=== PATIENT | male | born 1950 | race Caucasian/White ===

== ENCOUNTER 2017-12-08 09:44 | Day surgery (SDC) | payer SELFPAY ==
[2017-12-08] VITALS (10 sets, daily range): BP systolic 158–189; BP diastolic 62–111; PULSE 90–118; TEMP 98.4–98.8
[~2017-12-08] VITALS: Ht 185.4 cm; Wt 76.0 kg
[2017-12-08] MEDS ORDERED: ASPIRIN 32325 MG/TAB PO (10:07)
[2017-12-08] MEDS ORDERED: COZAAR 25MG25 MG/TAB PO (10:07)
[2017-12-08] MEDS ORDERED: CENTRUM SILVER1 TAB PO (10:08)
[2017-12-08] MEDS ORDERED: OMEGA-3 1000 MG1 CAP PO (10:08)
[2017-12-08] MEDS ORDERED: NORCO 325 MG-7.1 TAB PO (18:15)
[2017-12-08] MEDS ORDERED: ROXICODONE 55 MG/TAB PO (18:16)
[2017-12-09 00:01] VITALS: BP 151/74; PULSE 88; TEMP 98.1
[2017-12-09 03:36] VITALS: BP 158/86; PULSE 88; TEMP 98.1
[2017-12-09 07:31] VITALS: BP 171/77; PULSE 100; TEMP 98.9
[2017-12-09] MEDS ORDERED: NORCO 325 MG-7.1 TAB PO (07:49)
[2017-12-09] MEDS ORDERED: OMEGA-3 1000 MG1 CAP PO (07:49)
[2017-12-09] MEDS ORDERED: COZAAR 25MG25 MG/TAB PO (07:49)
[2017-12-09] MEDS ORDERED: ROXICODONE 55 MG/TAB PO (07:49)
[2017-12-09] MEDS ORDERED: ASPIRIN 32325 MG/TAB PO (07:49)
== END 2017-12-09 11:03 | disposition home or self-care (01) ==
LOC: SDCO 09:44 → MEDICAL 20:50 → SDCO 12-09 11:03
DX: S46.012A Strain of muscle(s) and tendon(s) of the rotator cuff of left shoulder, initial encounter (principal); S43.492A Other sprain of left shoulder joint, initial encounter; S46.192A Other injury of muscle, fascia and tendon of long head of biceps, left arm, initial encounter; G89.18 Other acute postprocedural pain
CPT/HCPCS: OP; C1713; J0690; J1100; J1170; J2270; J2370; J2405; J2704; J2765; J2795; J3010; J7030; J7120

== ENCOUNTER → 2018-02-01 | Outpatient (CLI) | payer SELFPAY ==
[~2018-02-01] MED LIST: ASPIRIN 32325 MG/TAB PO; CENTRUM SILVER1 TAB PO; CEPHALEXIN500 M1 PO; COZAAR 25MG25 MG/TAB PO; HYZAAR 12.5 MG-1 TAB PO; MOTRIN 200200 MG/TAB PO; NORCO 325 MG-7.1 TAB PO; OMEGA-3 1000 MG1 CAP PO; ROXICODONE 55 MG/TAB PO
[2018-02-01 10:53] LABS: HEMATOCRIT 44.5 % (42.0-52.0); HEMOGLOBIN 15.1 g/dl (13.5-18.0); MEAN CELL VOLUME 94 fl (80.0-100.0); MEAN CORPUSCULAR HEMOGLOBIN 32 pg (27.0-31.0); MEAN CORPUSCULAR HGB CONC 34 g/dl (33.0-37.0); MEAN PLATELET VOLUME 8.8 fl (7.4-10.4); PLATELET COUNT 336 K/mm3 (130-400); RED BLOOD COUNT 4.72 M/mm3 (4.20-5.60); REDCELL DISTRIBUTION WIDTH-CV 12.1 % (11.5-14.5)
[2018-02-01 11:04] LABS: ALBUMIN 4.6 gm/dL (3.5-5.0); BILIRUBIN,TOTAL 0.7 mg/dL (0.0-1.0); C-REACTIVE PROTEIN 1.8 mg/dL (0.0-0.9); CALCIUM 10.1 mg/dL (8.4-10.2); CREATININE, serum 1.22 mg/dL (0.66-1.25); POTASSIUM 3.9 mmol/L (3.4-5.0); TOTAL PROTEIN 8.8 gm/dL (6.4-8.2)
[2018-02-01 11:24] LABS: ERYTHROCYTE SEDIMENTATION RATE 40 mm/hr (0-30)
== END ==
LOC: COL.LAB 10:36
PROVIDERS: Nurse Practitioner
DX: T81.89XA Other complications of procedures, not elsewhere classified, initial encounter (principal)

== ENCOUNTER 2018-02-02 12:46 | Day surgery (SDC) | payer SELFPAY ==
[2018-02-02] VITALS (7 sets, daily range): BP systolic 121–148; BP diastolic 59–72; PULSE 72–113; TEMP 99
[~2018-02-02] VITALS: Ht 185.4 cm; Wt 74.5 kg
[~2018-02-02 12:46] MED LIST changes: -CEPHALEXIN500 M1 PO; -HYZAAR 12.5 MG-1 TAB PO; -MOTRIN 200200 MG/TAB PO
[2018-02-02] MEDS ORDERED: CEPHALEXIN500 M1 PO (13:11)
[2018-02-02] MEDS ORDERED: HYZAAR 12.5 MG-1 TAB PO (13:11)
[2018-02-02] MEDS ORDERED: MOTRIN 200200 MG/TAB PO (13:12)
[2018-02-03 00:45] VITALS: BP 150/83; PULSE 75; TEMP 98.5
[2018-02-03 07:41] VITALS: BP 104/56; PULSE 92; TEMP 98.4
[2018-02-03 12:24] VITALS: BP 114/58; PULSE 86; TEMP 98.7
== END 2018-02-03 14:45 | disposition home or self-care (01) ==
LOC: SDCO 12:46 → SURG 16:28 → SDCO 17:15
DX: T81.40XA Infection following a procedure, unspecified, initial encounter (principal); I10 Essential (primary) hypertension; Z79.82 Long term (current) use of aspirin
CPT/HCPCS: OP; J0171; J0690; J1885; J2370; J2405; J2704; J3010; J7120